=== PATIENT | male | born 1985 | race Two or more races ===

== ENCOUNTER 2019-03-11 16:21 | Emergency (ER) | payer SELFPAY ==
[~2019-03-11] VITALS: Ht 165.1 cm; Wt 79.4 kg
--- NOTE | 2019-03-11 16:21 | NUR ---
PT ORI FROM BUS STATION WITH PLANS TO SHOOT HIMSELF; PT AMBULATORY, PT TO BED 15, SUICIDE PRECAUTION STARTED, BELONGING IN NURSING STATION, PENDING ER PROVIDER ENEDELIA
--- NOTE | 2019-03-11 16:38 | NUR ---
CALLED SIMA LATHAM, NONE AVAILABLE AT THE TIME. Addendum: 03/11/19 at 0932 by MAUREEN CALLED SHARAN WITH THE CRISIS TEAM AND LEFT VOICEMAIL
[2019-03-11 16:46] LABS: BASOPHILS % (AUTO) 0.7 % (0.0-2.0); EOSINOPHILS % (AUTO) 2.7 % (0.0-6.0); HEMATOCRIT 42 % (39-51); HEMOGLOBIN 14.2 g/dL (13.5-17.5); LYMPHOCYTES # (AUTO) 1.8 /CMM (0.8-4.8); LYMPHOCYTES % (AUTO) 38.3 % (20.0-44.0); MEAN CORPUSCULAR HGB CONC 34 g/dl (31.0-36.0); MEAN CORPUSCULAR VOLUME 101 fL (80-96); MONOCYTES # (AUTO) 0.4 /CMM (0.1-1.30); NEUTROPHILS # (AUTO) 2.4 /CMM (1.8-8.9); NEUTROPHILS % (AUTO) 50.3 % (43.0-81.0); PLATELET COUNT (AUTO) 300 /CMM (150-450); RED BLOOD CELL COUNT(AUTO) 4.16 MIL/uL (4.5-6.0); WHITE BLOOD COUNT (AUTO) 4.8 K/uL (4.3-11.0)
--- NOTE | 2019-03-11 16:50 | NUR ---
SITTER AT BEDSIDE
[2019-03-11 16:54] LABS: CALCIUM, SERUM 8.3 mg/dL (8.5-10.1); CARBON DIOXIDE 24 mmol/L (21-32); CHLORIDE 104 mmol/L (98-107); CREATININE 0.8 mg/dL (0.6-1.3); GLUCOSE 108 mg/dL (74-106); POTASSIUM 3.4 mmol/L (3.5-5.1); SODIUM SERUM 141 mmol/L (136-145); UREA NITROGEN, BLOOD 6 mg/dL (7-18)
[2019-03-11 16:57] LABS: APPEARANCE,URINE Clear (CLEAR); BILIRUBIN,URINE Negative (NEGATIVE); BLOOD, URINE Negative Ery/uL (NEGATIVE); COLOR,URINE Yellow (YELLOW); KETONES,URINE Negative (NEGATIVE); LEUKOCYTE ESTERASE ,URINE Negative (NEGATIVE); NITRITE, URINE Negative (NEGATIVE); PROTEIN,URINE Negative (NEGATIVE); UGLUCOSE Negative (NEGATIVE); UROBILINOGEN,URINE 0.2 EU/dL (0.2)
[2019-03-11 17:09] LABS: ALANINE AMINOTRANSFERASE 20 U/L (12-78); ALBUMIN 3.8 g/dL (3.4-5.0); ALCOHOL, BLOOD 319 mg/dL (0-0); ALKALINE PHOSPHATASE 110 U/L (46-116); ASPARTATE AMINOTRANSFERASE 27 U/L (15-37); BILIRUBIN,DIRECT 0.1 mg/dL (0.0-0.2); BILIRUBIN,TOTAL 0.2 mg/dL (0.2-1.0); TOTAL PROTEIN, SERUM 7.9 g/dL (6.4-8.2)
[2019-03-11 17:12] LABS: ACETAMINOPHEN < 2 ug/ml (10-30); SALICYLATE 1.6 mg/dL (2.8-20.0)
--- NOTE | 2019-03-11 17:47 | NUR ---
CALLED SHARAN WITH THE CRISIS TEAM, LEFT VOICEMAIL.
--- NOTE | 2019-03-11 17:56 | NUR ---
SHARAN STATED PT CAN NOT BE EVALUATED UNTIL ALCOHOL LEVEL BELOW 0.1 (CURRENTLY ALCOHOL LEVEL 400)
[2019-03-11] MEDS ORDERED: ACETAMINOPHEN ES 500 MG TABLET PO ONE (20:00)
[2019-03-11] MEDS ORDERED: ACETAMINOPHEN ES 500 MG TABLET ONE (20:11)
--- NOTE | 2019-03-11 21:45 | NUR ---
Patient discharged to home in stable condition. Written and verbal after care instructions given. Patient verbalizes understanding of instruction.
[2019-03-11 22:17] VITALS: BP 123/76
== END 2019-03-11 21:45 | disposition home or self-care (01) ==
LOC: ER 16:21
DX: F10.129 Alcohol abuse with intoxication, unspecified (principal); Y90.8 Blood alcohol level of 240 mg/100 ml or more
CPT/HCPCS: 36415; 80048; 80076; 80305; 80307 ×2; 80329; 81001; 85025; 99283; G0480; 81000-TC

== ENCOUNTER 2021-12-30 15:24 | Emergency (ER) | payer SELFPAY ==
[~2021-12-30] VITALS: Ht 170.2 cm; Wt 63.5 kg
[2021-12-30 15:31] VITALS: BP 128/74
--- NOTE | 2021-12-30 15:42 | NUR ---
BIBRA 40 C/O COUGH X 3 DAYS. 02 SAT OF 98% ON RA. RESPIRATION REGULAR AND UNLABORED. WILL CONTINUE TO MONITOR.
--- NOTE | 2021-12-30 16:22 | NUR ---
Patient eloped from facility. ER MD notified.
[2021-12-30] MEDS ORDERED: BENZ-13 PO (17:45)
[2021-12-30] MEDS ORDERED: GUAI1TBM19 PO (17:45)
== END 2021-12-30 16:23 | disposition left against medical advice (07) ==
LOC: ER 15:27
DX: Z53.21 Procedure and treatment not carried out due to patient leaving prior to being seen by health care provider (principal); R05.9 Cough, unspecified

== ENCOUNTER 2021-12-30 16:35 | Emergency (ER) | payer SELFPAY ==
[~2021-12-30] VITALS: Ht 170.2 cm; Wt 65.8 kg
[2021-12-30 16:47] VITALS: BP 104/67
--- NOTE | 2021-12-30 16:49 | NUR ---
BIBS FOR COUGH X3 DAYS. DENIES SOB. RESPIRATION REGULAR AND UNLABORED. OXYGEN SATURATION IN ROOM AIR IS AT 98%. WILL CONTINUE TO MONITOR THE PATIENT.
[2021-12-30] MEDS ORDERED: BENZ-13 PO (17:45)
[2021-12-30] MEDS ORDERED: GUAI1TBM19 PO (17:45)
--- NOTE | 2021-12-30 17:52 | NUR ---
Patient discharged to home in stable condition. Written and verbal after care instructions given. Patient verbalizes understanding of instruction.
--- NOTE | 2021-12-30 17:53 | NUR ---
PT LEFT WITHOUT DISCHARGE INSTRUCTION
== END 2021-12-30 17:54 | disposition home or self-care (01) ==
LOC: ER 16:36
DX: J06.9 Acute upper respiratory infection, unspecified (principal); Z60.2 Problems related to living alone
CPT/HCPCS: 71045-TC